=== PATIENT | female | born 1975 | race Caucasian/White ===

== ENCOUNTER → 2017-04-26 | Outpatient (CLI) | payer OTHER ==
[~2017-04-26] MED LIST: CIPRO500 M1 PO
== END ==
LOC: M.RAD 09:32
DX: M25.511 Pain in right shoulder (principal)

== ENCOUNTER → 2017-06-20 | Outpatient (CLI) | payer OTHER | LOC: M.RAD 08:16 | DX: Z12.31 Encounter for screening mammogram for malignant neoplasm of breast (principal) ==

== ENCOUNTER → 2017-06-22 | Outpatient (CLI) | payer OTHER | LOC: M.ULTRA 08:42 | DX: N63.10 Unspecified lump in the right breast, unspecified quadrant (principal) ==

== ENCOUNTER → 2017-07-11 | Outpatient (CLI) | payer OTHER | LOC: M.MRI 07-05 08:30 | DX: S46.811A Strain of other muscles, fascia and tendons at shoulder and upper arm level, right arm, initial encounter (principal); M25.611 Stiffness of right shoulder, not elsewhere classified; R52 Pain, unspecified; X58.XXXA Exposure to other specified factors, initial encounter; Y93.89 Activity, other specified; Y92.89 Other specified places as the place of occurrence of the external cause; Y99.8 Other external cause status ==

== ENCOUNTER 2017-11-14 08:56 | Emergency (ER) | payer OTHER ==
[~2017-11-14] VITALS: Ht 170.2 cm; Wt 89.4 kg
[2017-11-14 09:19] LABS: ABSOLUTE BASOPHILS 0.1 thou/uL (0.0-0.2); ABSOLUTE EOSINOPHILS 0.1 thou/uL (0.0-0.7); ABSOLUTE LYMPHOCYTES 1.4 thou/uL (0.8-5.3); ABSOLUTE MONOCYTES 0.4 thou/uL (0.0-1.2); ABSOLUTE NEUTROPHILS 6.3 thou/uL (1.6-8.1); BASOPHILS 0.8 %; HEMOGLOBIN 11.2 gm/dL (12.0-15.0); MCHC 33.1 g/dL (28.0-37.0); MCV 84.8 fL (80.0-100.0); MONOCYTES 4.5 %; MPV 8.6 fl. (7.2-11.1); NUCLEATED RBCS 0 /100WBC; PLATELET COUNT* 327 thou/uL (150-400); POLYS 76.7 %; RBC 4.01 mil/uL (4.20-5.00); RDW-CV 13.4 % (10.5-14.5); WBC 8.2 thou/uL (4.0-11.0)
[2017-11-14 09:32] LABS: PROTIME 9.8 Seconds (9.20-11.50)
[2017-11-14 09:34] LABS: ANION GAP 6 mmol/L (7-16); BUN 8 mg/dL (7-18); CALCIUM 8.6 mg/dL (8.5-10.1); CHLORIDE 103 mmol/L (98-107); CO2 27 mmol/L (21-32); GLUCOSE 103 mg/dL (70-99); POTASSIUM 3.9 mmol/L (3.5-5.1); SODIUM 136 mmol/L (136-145)
[2017-11-14 09:46] LABS: ALBUMIN 3.5 g/dL (3.4-5.0); ALKALINE PHOSPHATASE 67 U/L (46-116); LIPASE 233 U/L (73-393); NT-PRO BRAIN NAT PEPTIDE 104 pg/mL (<300); SGOT 18 U/L (15-37); SGPT 23 U/L (30-65); TOTAL BILIRUBIN 0.2 mg/dL (<0.1-1.0); TOTAL PROTEIN 7.4 g/dL (6.4-8.2); TROPONIN-I LEVEL <0.06 ng/mL (<0.06)
[2017-11-14 11:39] VITALS: BP 103/63
--- NOTE | 2017-11-14 15:09 | EKG ---
[place] [address] ELECTROCARDIOGRAM REPORT Name: BRIAN BRYSON Room: [facility]#: [id number] Admission: 11/14/17 Attend Phys: Discharge: 11/14/17 Date of : 73 Report #: [id number] THIS REPORT FOR: //name// [facility] ED Test Date: 2017-11-14 Test Time: 09:01:41 Pat Name: BRIAN BRYSON Department: Room: Gender: F [employer] Sales Representative: SUKUMAR : 1975 Requested By: Perico Mejia Order Number: [id number] : Jean Murphy Measurements Intervals [place] Rate: 91 P: 15 WI: 179 QRS: 21 QRSD: 99 T: 1 QT: 347 QTc: 427 Interpretive Statements Sinus rhythm Low voltage, precordial leads Borderline T abnormalities, anterior leads No previous ECG available for comparison Electronically Signed On 11-14-2017 15:09:05 CDT by Jean Murphy [email or web address] <ELECTRONICALLY SIGNED> By: Jean Murphy MD, [facility] 11/14/17 1509 0901 0 Jean Murphy MD, FACC /EPI
== END 2017-11-14 11:39 | disposition home or self-care (01) ==
LOC: M.ERS 08:56
PROVIDERS: Emergency Medicine
DX: R07.89 Other chest pain (principal); R00.2 Palpitations; F17.210 Nicotine dependence, cigarettes, uncomplicated; Z90.49 Acquired absence of other specified parts of digestive tract; Z98.890 Other specified postprocedural states